=== PATIENT | male | born 1975 | race Caucasian/White ===

== ENCOUNTER 2017-06-20 15:51 | Emergency (ER) | payer OTHER ==
[~2017-06-20] VITALS: Ht 170.2 cm; Wt 90.7 kg
[2017-06-20] MEDS ORDERED: IBUPROFEN 800 MG TABLET PO ONE (16:45)
[2017-06-20 17:12] LABS: POTASSIUM 3.9 mmol/L (3.5-5.1)
[2017-06-20 17:13] LABS: BASOPHILS # (AUTO) 0.1 K/uL (0.0-8.0); BASOPHILS % (AUTO) 1.2 % (0.0-2.0); EOSINOPHILS # (AUTO) 0.1 K/uL (0.0-0.7); EOSINOPHILS % (AUTO) 1.6 % (0.0-7.0); HEMATOCRIT 41.6 % (36.7-47.1); HEMOGLOBIN 14.3 g/dL (12.5-16.3); LYMPHOCYTES # (AUTO) 1.6 K/uL (20.0-40.0); LYMPHOCYTES % (AUTO) 32.2 % (20.5-51.5); MEAN CORPUSCULAR HGB CONC 34 g/dL (32.5-36.3); MEAN CORPUSCULAR VOLUME 95.8 fL (73.0-96.2); MONOCYTES # (AUTO) 0.4 K/uL (2.0-10.0); MONOCYTES % (AUTO) 8.4 % (0.0-11.0); NEUTROPHILS # (AUTO) 2.8 K/uL (1.8-8.9); NEUTROPHILS % (AUTO) 56.6 % (38.5-71.5); PLATELET COUNT (AUTO) 194 K/uL (152-348); RED BLOOD CELL COUNT(AUTO) 4.34 MIL/uL (4.06-5.63); WHITE BLOOD COUNT (AUTO) 4.9 K/uL (3.6-10.2)
[2017-06-20 17:18] LABS: BILIRUBIN,DIRECT 0.1 mg/dL (0.0-0.2); BILIRUBIN,TOTAL 0.4 mg/dL (0.2-1.0); TOTAL PROTEIN, SERUM 7.4 g/dL (6.4-8.2)
[2017-06-20] MEDS ORDERED: IBUPROFEN 800 MG TABLET ONE (17:21)
== END 2017-06-20 18:45 | disposition home or self-care (01) ==
LOC: ER 15:54
DX: S46.002A Unspecified injury of muscle(s) and tendon(s) of the rotator cuff of left shoulder, initial encounter (principal); R07.89 Other chest pain; Z87.891 Personal history of nicotine dependence; X58.XXXA Exposure to other specified factors, initial encounter; Y93.89 Activity, other specified; Y92.89 Other specified places as the place of occurrence of the external cause; Y99.8 Other external cause status
CPT/HCPCS: 36415; 70030-TC; 73030; 85025; 85730; 93005; A4663

== ENCOUNTER 2017-07-26 12:10 | Emergency (ER) | payer MEDICAID, OTHER ==
[~2017-07-26] VITALS: Ht 165.1 cm; Wt 81.6 kg
--- NOTE | 2017-07-26 12:44 | NUR ---
PATIENT WAS SEEN BY . HE IS A/A/O X3 IN NO DISTRESS. DC, RX (INCLUDING PRECAUTIONS) GIVEN AND EXPLAINED TO PATIENT WHO STATES HE UNDERSTANDS ALL INSTRUCTIONS.
== END 2017-07-26 12:47 | disposition home or self-care (01) ==
LOC: ER 12:10
DX: J02.9 Acute pharyngitis, unspecified (principal)
CPT/HCPCS: A4663

== ENCOUNTER 2020-10-27 15:39 | Emergency (ER) | payer MEDICAID ==
[~2020-10-27] VITALS: Ht 172.7 cm; Wt 102.1 kg
[2020-10-27 16:19] LABS: *BILIRUBIN,URIN NEGATIVE (NEGATIVE); *BLOOD, URINE NEGATIVE (NEGATIVE); *CLARITY,URINE CLEAR (CLEAR); *COLOR,URINE YELLOW (YELLOW); *KETONES,URINE NEGATIVE (NEGATIVE); *UROBILINOGEN,URINE 0.2 E.U./dl (NORMAL); LEUKOCYTE ESTERASE ,URINE NEGATIVE (NEGATIVE); NITRITE, URINE NEGATIVE (NEGATIVE); PH,URINE 5.5 (5.0-8.0); UGLUCOSE NEGATIVE (NEGATIVE)
[2020-10-27 16:20] LABS: MEAN CORPUSCULAR HEMOGLOBIN 33.7 uug (23.8-33.4); MEAN CORPUSCULAR VOLUME 97.4 fL (73.0-96.2); PLATELET COUNT (AUTO) 207 K/uL (152-348)
[2020-10-27 16:23] LABS: CREATININE 0.8 mg/dL (0.6-1.3); POTASSIUM 3.8 mmol/L (3.5-5.1)
[2020-10-27 16:29] LABS: BILIRUBIN,DIRECT 0.2 mg/dL (0.0-0.2); BILIRUBIN,TOTAL 0.6 mg/dL (0.2-1.0); TOTAL PROTEIN, SERUM 8.1 g/dL (6.4-8.2)
--- NOTE | 2020-10-27 16:41 | NUR ---
Pt out of ER for CT.
--- NOTE | 2020-10-27 17:00 | NUR ---
Pt back from Ct, resting in bed.
[2020-10-27] MEDS ORDERED: AMOX-430 PO (18:15)
[2020-10-27] MEDS ORDERED: IBUP-1955 PO (18:15)
[2020-10-27] MEDS ORDERED: DICY20TA11 PO (18:15)
--- NOTE | 2020-10-27 18:25 | NUR ---
Patient discharged to home in stable condition. Written and verbal after care instructions given. Patient verbalizes understanding of instructions. Stressed follow up or return to ER for worsening s/s.
[2020-10-27 18:27] VITALS: BP 112/70
== END 2020-10-27 18:27 | disposition home or self-care (01) ==
LOC: ER 15:39
DX: K57.92 Diverticulitis of intestine, part unspecified, without perforation or abscess without bleeding (principal); Z87.01 Personal history of pneumonia (recurrent); K76.0 Fatty (change of) liver, not elsewhere classified
CPT/HCPCS: 36415; 70030-TC; 83690; 85025; 93005; A4663

== ENCOUNTER 2021-12-11 16:36 | Emergency (ER) | payer MEDICAID ==
[~2021-12-11] VITALS: Ht 170.2 cm; Wt 107.0 kg
[~2021-12-11 16:36] MED LIST: AMOX-430 PO; DICY20TA11 PO; IBUP-1955 PO
[2021-12-11] MEDS ORDERED: KETOROLAC TROMETHAMINE 15 MG INJ IM ONE ×2 (17:00→17:30)
[2021-12-11] MEDS ORDERED: DEXAMETHASONE SOD PHOSPHATE 4 MG INJ IM ONE ×2 (17:00→17:30)
[2021-12-11] MEDS ORDERED: DEXAMETHASONE SOD PHOSPHATE 10 MG INJ ONE (17:23)
[2021-12-11] MEDS ORDERED: KETOROLAC TROMETHAMINE 15 MG INJ ONE (17:23)
--- NOTE | 2021-12-11 17:26 | NUR ---
PATIENT STATED THAT HE HAD BEEN COVID TESTING FOR THE PAST 5 DAYS AND ALL RESULTS HAD BEEN NEGATIVE SO FAR.
[2021-12-11] MEDS ORDERED: ALBUTEROL SULFATE 2.5 MG/3 ML NEBU NEB ONE (17:30)
[2021-12-11] MEDS ORDERED: IPRATROPIUM BROMIDE 0.5 MG/2.5 ML NEBU NEB ONE (17:30)
[2021-12-11] MEDS ORDERED: ALBUTEROL SULFATE 2.5 MG/3 ML NEBU ONE (17:37)
[2021-12-11] MEDS ORDERED: IPRATROPIUM BROMIDE 0.5 MG/2.5 ML NEBU ONE (17:37)
--- NOTE | 2021-12-11 17:59 | NUR ---
Administered ketorolac 15mg/ml via IM injection on L deltoid, patient tolerated, no bleeding on site no adverse effects noted. Also administered dexamethasone 10mg/ml via IM on R deltoid, no bleeding on site, no adverse effects, able to tolerate. Julissa Atkins/Hnanah Garcia, SN
[2021-12-11] MEDS ORDERED: AZIT250T13 PO (18:19)
== END 2021-12-11 18:46 | disposition home or self-care (01) ==
LOC: ER 16:38
DX: J40 Bronchitis, not specified as acute or chronic (principal); Z87.891 Personal history of nicotine dependence; Z87.19 Personal history of other diseases of the digestive system
CPT/HCPCS: 99285; 71046; 94644; 96372 ×2; J1100; J1885; A4663; J3590

== ENCOUNTER 2021-12-31 02:13 | Emergency (ER) | payer MEDICAID ==
[~2021-12-31] VITALS: Ht 170.2 cm; Wt 101.2 kg
[~2021-12-31 02:13] MED LIST changes: +AZIT250T13 PO
--- NOTE | 2021-12-31 02:20 | NUR ---
Patient A/Ox4, speech is clear, speaks in complete sentences. Patient came for c/o dizziness; patient reports drinking excessive amounts of green tea earlier in the day and states that he feels unwell. Respiratory even and unlabored, with no cough. Denies any abd pain, n/v/d or constipation. States that he has been urinating more frequently today. Patient in bed at lowest position, sr upx2, call light within reach. Pending ERMD evaluation.
--- NOTE | 2021-12-31 02:40 | NUR ---
Dr. Rangel bedside. MSE in progress.
--- NOTE | 2021-12-31 02:55 | NUR ---
Labs drawn and sent to laboratory for testing.
[2021-12-31 02:59] LABS: HEMATOCRIT 40.3 % (36.7-47.1); MEAN CORPUSCULAR HEMOGLOBIN 33.6 uug (23.8-33.4); MEAN CORPUSCULAR VOLUME 95.9 fL (73.0-96.2); PLATELET COUNT (AUTO) 195 K/uL (152-348)
[2021-12-31] MEDS ORDERED: IV NS 1000 ML 1,000 ML IV ONE (03:00)
[2021-12-31 03:09] LABS: CARBON DIOXIDE 23 mmol/L (21-32); CHLORIDE 99 mmol/L (98-107); CREATININE 0.9 mg/dL (0.6-1.3); GLUCOSE 150 mg/dL (74-106); UREA NITROGEN, BLOOD 12 mg/dL (7-18)
[2021-12-31 03:17] LABS: ALANINE AMINOTRANSFERASE 49 U/L (16-63); ALKALINE PHOSPHATASE 107 U/L (50-136); ASPARTATE AMINOTRANSFERASE 28 U/L (15-37); BILIRUBIN,DIRECT 0.2 mg/dL (0.0-0.2); BILIRUBIN,TOTAL 0.8 mg/dL (0.2-1.0); TOTAL PROTEIN, SERUM 7.9 g/dL (6.4-8.2)
[2021-12-31] MEDS ORDERED: POTASSIUM BICARBONATE/CIT AC 25 MEQ TABLET.EFF ONE (03:29)
[2021-12-31] MEDS ORDERED: POTASSIUM BICARBONATE/CIT AC 25 MEQ TABLET.EFF PO ONE (03:30)
[2021-12-31 03:35] LABS: *BILIRUBIN,URIN NEGATIVE (NEGATIVE); *BLOOD, URINE NEGATIVE (NEGATIVE); *CLARITY,URINE CLEAR (CLEAR); *KETONES,URINE TRACE (NEGATIVE); *UROBILINOGEN,URINE 0.2 E.U./dl (NORMAL); LEUKOCYTE ESTERASE ,URINE NEGATIVE (NEGATIVE); NITRITE, URINE NEGATIVE (NEGATIVE); PH,URINE 6.5 (5.0-8.0); UGLUCOSE NEGATIVE (NEGATIVE)
[2021-12-31 03:43] LABS: *COLOR,URINE LIGHT YELLOW (YELLOW)
--- NOTE | 2021-12-31 04:04 | NUR ---
Patient discharged to home in stable condition. A/O X4. NAD noted. Ambulatory with a steady gait. All belongings with patient. Written and verbal after care instructions given. Patient verbalizes understanding of instructions. Stressed follow up or return to ER for worsening s/s.
[2021-12-31 04:06] VITALS: BP 141/86
== END 2021-12-31 04:04 | disposition home or self-care (01) ==
LOC: ER 02:17
DX: R53.1 Weakness (principal); E87.1 Hypo-osmolality and hyponatremia; E87.6 Hypokalemia; R73.03 Prediabetes; R94.31 Abnormal electrocardiogram [ECG] [EKG]; Z87.01 Personal history of pneumonia (recurrent)
CPT/HCPCS: 99284; 80076; 80048; 81003; 83735; 85025; 85379; 84484; 36415; 93005; J7040; A4663

== ENCOUNTER 2023-07-13 14:01 | Emergency (ER) | payer OTHER ==
[~2023-07-13] VITALS: Ht 172.7 cm; Wt 106.6 kg
[~2023-07-13 14:01] MED LIST changes: +ALBU18HF2 INH; +FLUT1BLS6 IH; +LEVO500T90 PO; +PRED20TA PO
[2023-07-13] MEDS ORDERED: IBUP-1957 PO (14:46)
[2023-07-13] MEDS ORDERED: CEPH500C2 PO (14:46)
[2023-07-13 15:00] VITALS: BP 110/69; TEMP 97.7; O2SAT 99
== END 2023-07-13 15:01 | disposition home or self-care (01) ==
LOC: ER 14:01
DX: L03.011 Cellulitis of right finger (principal); F17.200 Nicotine dependence, unspecified, uncomplicated; Z98.890 Other specified postprocedural states; Z79.899 Other long term (current) drug therapy; Z88.5 Allergy status to narcotic agent
CPT/HCPCS: A4606; A4663

== ENCOUNTER 2024-12-17 10:33 | Emergency (ER) | payer OTHER ==
[~2024-12-17] VITALS: Ht 170.2 cm; Wt 102.1 kg
[~2024-12-17 10:33] MED LIST changes: +CEPH500C2 PO; +IBUP-1957 PO
[2024-12-17 10:43] VITALS: BP 121/66
[2024-12-17] MEDS ORDERED: DEXAMETHASONE SOD PHOSPHATE 4 MG INJ ONE ×2 (11:35→11:42)
[2024-12-17] MEDS ORDERED: KETOROLAC TROMETHAMINE 15 MG INJ ONE (11:36)
[2024-12-17] MEDS: KETOROLAC TROMETHAMINE 15 MG INJ IM ONE (11:41)
[2024-12-17] MEDS: DEXAMETHASONE SOD PHOSPHATE 4 MG INJ IM ONE (11:43)
[2024-12-17] MEDS ORDERED: IBUP-1955 PO (11:50)
[2024-12-17] MEDS ORDERED: METH4TAB21 PO (11:50)
[2024-12-17] MEDS ORDERED: CYCL5TAB PO (11:50)
[2024-12-17] MEDS ORDERED: LIDO30AD10 TP (11:50)
[2024-12-17] MEDS ORDERED: OXYC-128 PO (11:50)
[2024-12-17 12:31] VITALS: BP 121/66; O2SAT 97
== END 2024-12-17 12:31 | disposition home or self-care (01) ==
LOC: ER 10:33
DX: M54.50 Low back pain, unspecified (principal); F17.200 Nicotine dependence, unspecified, uncomplicated; Z79.52 Long term (current) use of systemic steroids; Z87.01 Personal history of pneumonia (recurrent); Z88.5 Allergy status to narcotic agent
CPT/HCPCS: A4606; A4663; J1100; J1885